=== PATIENT | male | born 1970 | race Caucasian/White ===

== ENCOUNTER 2017-10-07 17:57 | Emergency (ER) | payer OTHER ==
[2017-10-07 18:07] VITALS: RESP 18
[2017-10-07] MEDS ORDERED: PROPARACAINE 0.5% OPHTH DROPS 15 ML BTL BOTH EYES STA (18:16)
--- NOTE | 2017-10-07 18:20 | ED ---
Head Injury HPI - General Chief complaint: Head Injury Stated complaint: Eye Injury-[facility] Time Seen by Provider: 10/07/17 18:09 Source: patient, RN notes reviewed, old records reviewed Mode of arrival: ambulatory Limitations: no limitations - History of Present Illness Initial comments: This patient is a 47-year-old male presents for a steroid to the chief complaint of right eye pain. Patient reports he was working with a crowbar and the crowbar slipped and hit him in the right eye. He reports that he has pain with extraocular eye movements. The eyes swollen and painful with lights or movement of the eye. Patient states that he feels like his eyes burning and scratched. - Related Data Home Medications Medication Instructions Recorded Confirmed Dextroamphetamine/Amphetamine 15 mg PO QAM 10/07/17 10/07/17 [Adderall] Famotidine 40 mg PO BID 10/07/17 10/07/17 Previous Rx's Medication Instructions Recorded Ciprofloxacin Ophth Soln [Cipro 1 drops RIGHT EYE Q4HR #1 bottle 10/07/17 Ophth Soln] Allergies/Adverse reactions: Allergies Allergy/AdvReac Type Severity Reaction Status Date / Time No Known Allergies Allergy Verified 10/07/17 18:14 Review of Systems ROS Statement: Those systems with pertinent positive or pertinent negative responses have been documented in the HPI. ROS Other: All systems not noted in ROS Statement are negative. Past Medical History Past Medical History: No Reported History History of Any Multi-Drug Resistant Organisms: None Reported Past Surgical History: No Surgical Hx Reported Past Psychological History: No Psychological Hx Reported Smoking Status: Never smoker Past Alcohol Use History: None Reported Past Drug Use History: None Reported General Exam - General Exam Comments Initial Comments: 47-year-old male. Alert. Patient is in moderate discomfort. Limitations: no limitations General appearance: alert, in no apparent distress Head exam: Present: atraumatic, normocephalic, normal inspection Eye exam: Present: PERRL, EOMI, conjunctival injection (Right conjunctival injection.), periorbital swelling (Right-sided paravertebral tenderness and swelling.). Absent: normal appearance, scleral icterus Expanded Eyelids: Erythema: Right, Swelling: Right Pupils: Regular, Round: Bilateral Sclera/Conjunctival: Injection: Right (Patient is a large corneal abrasion from the 3 o'clock position to 7 o'clock position, second abrasion noted at the 9 o' clock position to 12 o'clock position of the eye respectively.) IOP (R) in mmH IOP (L) in mmH IOP measured with: [facility] ENT exam: Present: normal exam, mucous membranes moist Neck exam: Present: normal inspection. Absent: tenderness, meningismus, lymphadenopathy Respiratory exam: Present: normal lung sounds bilaterally. Absent: respiratory distress, wheezes, rales, rhonchi, stridor Cardiovascular Exam: Present: regular rate, normal rhythm, normal heart sounds. Absent: systolic murmur, diastolic murmur, rubs, gallop, clicks GI/Abdominal exam: Present: soft, normal bowel sounds. Absent: distended, tenderness, guarding, rebound, rigid Extremities exam: Present: normal inspection, full ROM, normal capillary refill. Absent: tenderness, pedal edema, joint swelling, calf tenderness Back exam: Present: normal inspection Neurological exam: Present: alert, oriented X3, CN II-XII intact Psychiatric exam: Present: normal affect, normal mood Skin exam: Present: warm, dry, intact, normal color. Absent: rash Course Vital Signs 10/07/17 10/07/17 18:03 19:07 Temperature 97.0 F L 97.6 F Pulse Rate 64 70 Respiratory 18 18 Rate Blood Pressure 136/86 130/86 O2 Sat by Pulse 99 97 Oximetry Medical Decision Making - Medical Decision Making 47-year-old male present of right eye irritation. Patient has a significant corneal abrasion on exam. Visual acuity is diminished due to the pain in the eye. Extraocular eye moves her tach. CT of brain and C-spine and face. Evidence of orbital fracture. CT brain was reviewed and normal. Patient started on Cipro drops. Will be given a referral for ophthalmology. We'll discharge him at this time with close follow-up with ophthalmology. All questions answered return parameters were discussed. - Radiology Data Radiology results: report reviewed There is minimal right-sided paravertebral soft tissue swelling. No fractures noted. Small mucous retention cyst in the right maxillary sinus. Negative computed tomography scan of the brain. Minimal right maxillary sinusitis or venous retention cyst. Arachnoid cyst noted in the posterior fossa. Disposition Clinical Impression: Corneal abrasion, Head injury, Contusion, eye Disposition: HOME SELF-CARE Condition: Good Instructions: Corneal Abrasion (ED) Additional Instructions: Patient is apply the antibiotic drops within the eye every 4 hours. Cool compresses over the eye. Return to the emergency department if any alarming signs or symptoms occur. Follow-up with ophthalmology tomorrow. Prescriptions: Ciprofloxacin Ophth Soln [Cipro Ophth Soln] 1 drops RIGHT EYE Q4HR #1 bottle Is patient prescribed a controlled substance at d/c from ED?: No If prescribed controlled substance>3 days was MAPS reviewed?: No When asked, does pt state using other controlled substances?: No Referrals: Johnny Coleman MD [Primary Care Provider] - 1-2 days Jluis Brown MD [STAFF PHYSICIAN] - 1-2 days Time of Disposition: 19:40
[2017-10-07] MEDS ORDERED: CIPROFLOXACIN 0.3% OPHTH SOLN 5 ML BTL RIGHT EYE STA (18:38)
[2017-10-07 19:08] VITALS: BP 130/86; PULSE 70; TEMP 97.6
--- NOTE | 2017-10-07 19:17 | CT ---
EXAMINATION TYPE: CT brain wo con DATE OF EXAM: 10/07/2017 COMPARISON: NONE HISTORY: Right orbital injury with swelling and pain. CT DLP: 1199 mGycm. Automated Exposure Control for Dose Reduction was Utilized. TECHNIQUE: CT scan of the head is performed without contrast. FINDINGS: Ventricles of normal size. There is no mass effect nor midline shift. There is no sign of intracranial hemorrhage. The calvarium is intact. There is minimal mucosal thickening at the floor t he right maxillary sinus. There is prominent subarachnoid space over the left cerebellar hemisphere a nd in particular at the anterior hemispheric fissure on the left side consistent with arachnoid cyst. This apparent cyst measures 1.7 cm. CONCLUSION: Negative CT scan of the brain. Minimal right maxillary sinusitis or mucous retention cyst. Arachnoid cyst noted in the posterior fossa.
--- NOTE | 2017-10-07 19:20 | CT ---
EXAMINATION TYPE: CT facial bones wo con DATE OF EXAM: 10/07/2017 COMPARISON: NONE HISTORY: Right orbital injury with swelling and pain. CT DLP: 679.3 mGycm Automated exposure control for dose reduction was used. TECHNIQUE: CT scan of the sinuses is performed without contrast, axial images are obtained, coronal r eformatted images are also reviewed. FINDINGS: The orbital margins appear intact. There is no evidence of retro-orbital mass. There is a s mall mucous retention 1 cm cyst at the floor the right maxillary sinus. There is fairly normal aerati on of the paranasal sinuses. There is bilateral patency of the ostiomeatal complex. The maxilla appea rs intact. The mandibular ring is intact. Zygomatic arches appear normal. Nasal bone appears intact. There is minimal soft tissue swelling anterior to the right orbit. The globes are symmetric. IMPRESSION: Minimal right-sided periorbital soft tissue swelling. No fracture seen. Small mucous rete ntion cyst in the right maxillary sinus.
== END 2017-10-07 19:56 | disposition home or self-care (01) ==
LOC: EC 17:57
DX: S05.01XA Injury of conjunctiva and corneal abrasion without foreign body, right eye, initial encounter (principal); S00.11XA Contusion of right eyelid and periocular area, initial encounter; S09.90XA Unspecified injury of head, initial encounter; Z79.899 Other long term (current) drug therapy; W22.8XXA Striking against or struck by other objects, initial encounter; Y92.69 Other specified industrial and construction area as the place of occurrence of the external cause; Y99.0 Civilian activity done for income or pay
CPT/HCPCS: 70450; 70486; 99284

== ENCOUNTER → 2020-05-23 | Outpatient (CLI) | payer BC ==
--- NOTE | 2020-05-23 10:56 | CT ---
EXAMINATION TYPE: CT abdomen pelvis w con DATE OF EXAM: 05/23/2020 COMPARISON: NONE HISTORY: 50-year-old male K57.92, acute diverticulitis, Left sided abdominal pain, history of stomach issues TECHNIQUE: Contiguous axial scanning of the abdomen and pelvis following administration of 100 ml Iso lauren 300 IV contrast. Delayed images through the kidneys and coronal/sagittal reconstructions perform ed. CT DLP: 1341 mGycm Automated exposure control for dose reduction was used. FINDINGS: Heart normal size without pericardial effusion. Small hiatal hernia. Lung bases clear without pleural effusion. Prominent lower paraesophageal lymph node measuring 9 mm probable reactive/post inflammato ry. Small amount of focal fat along the anterior falciform ligament. Portal venous system is patent. No b iliary ductal dilatation. Gallbladder, adrenal glands, spleen, and pancreas appear within normal limits. Bilateral extrarenal pelves. No nephrolithiasis or hydronephrosis. No dilated small bowel, free fluid, or free air. No mesenteric or retroperitoneal lymphadenopathy. Normal appendix. Oral contrast progressed to the upper ascending colon. Mild stool burden. Scattered mild diverticular change along the left side of the colon. No discrete acute inflammation is identifi ed at this time. Small fatty umbilical hernia measuring 2.0 cm wide. Moderate circumferential bladder wall thickening. Prostate gland prominent at 4.0 cm wide. Slight asy mmetric nodular enhancement within the right paramedian prostate gland, axial 5 and sagittal image 39 questionable clinical significance. Left-sided pelvic phleboliths. No abnormal fluid collection in t he pelvis or pelvic lymphadenopathy. Bones: Mild degenerative disc disease lower thoracic spine. Diffuse disc bulge L3-L4. Facet arthropat hy lower lumbar spine. IMPRESSION: 1. MILD SCATTERED LEFT-SIDED COLONIC DIVERTICULOSIS. NO EVIDENCE FOR ACUTE DIVERTICULITIS AT THIS ODALIS E. 2. MODERATE CIRCUMFERENTIAL BLADDER WALL THICKENING COULD REFLECT CHRONIC BLADDER HYPERTROPHY. CORREL ATE TO EXCLUDE CYSTITIS. 3. PROSTATE GLAND ONLY BORDERLINE ENLARGED AT 4.0 CM WIDE. THERE IS SLIGHT ASYMMETRIC NODULAR ENHANCE MENT IN THE RIGHT SIDE OF THE PROSTATE GLAND OF QUESTIONABLE CLINICAL SIGNIFICANCE. CORRELATE WITH PS A VALUES AND POSSIBLE PROSTATE ULTRASOUND CLINICALLY INDICATED. 4. SMALL HIATAL HERNIA. AN ADJACENT BORDERLINE SIZED 9 MM LYMPH NODE IS PROBABLY REACTIVE/POST INFLAM MATORY. ADDITIONAL SMALL FATTY UMBILICAL HERNIA.
== END | disposition home or self-care (01) ==
LOC: RADCTMAIN 08:30
PROVIDERS: ATTEND Family Medicine
DX: K57.30 Diverticulosis of large intestine without perforation or abscess without bleeding (principal); N40.0 Benign prostatic hyperplasia without lower urinary tract symptoms; K42.9 Umbilical hernia without obstruction or gangrene; N32.89 Other specified disorders of bladder; R93.89 Abnormal findings on diagnostic imaging of other specified body structures
CPT/HCPCS: 74177; Q9967

== ENCOUNTER 2020-08-19 12:16 | Emergency (ER) | payer BC ==
[2020-08-19 12:23] VITALS: TEMP 97.5
[2020-08-19] MEDS ORDERED: ONDANSETRON 4 MG/2 ML VIAL IVP STA (12:34)
[2020-08-19] MEDS ORDERED: HYDROmorphone 1 MG/ML 1 ML SYRINGE IVP STA ×2 (12:34→14:22)
[2020-08-19] MEDS ORDERED: SODIUM CHLORIDE 0.9% 1,000 ML IV STA ×2 (12:34→14:22)
--- NOTE | 2020-08-19 12:39 | ED ---
Nausea/Vomiting/Diarrhea HPI - General Chief complaint: Nausea/Vomiting/Diarrhea Stated complaint: abd pain Time Seen by Provider: 08/19/20 12:24 Source: patient, family, RN notes reviewed Mode of arrival: wheelchair Limitations: no limitations - History of Present Illness Initial comments: Patient is a 50-year-old male that presents to emergency department complaining of abdominal pain, nausea vomiting, hematochezia and bright red per rectum over the last several days. He noted that he has not able to eat or drink really over the last couple days. Said the pains a 10 out of 10 that is constant sharp with no relief. He did note that since last January he's had mysterious abdominal pain. Most recent CT was May 2020 which didn't show any i nfection or inflammation. Patient was in moderate distress and discomfort while laying in bed during exam and interview. He noted that yesterday he had a loose stool with some bright red blood in it and vomited with bright red blood in it. He denied any chest pain shortness of breath headache constipation fever fatigue chills history of bleeding issues. - Related Data Home Medications Medication Instructions Recorded Confirmed Dextroamphetamine/Amphetamine 15 mg PO BID@0600,1300 10/07/17 08/19/20 [Adderall] Famotidine 40 mg PO BID PRN 10/07/17 08/19/20 Citalopram Hydrobromide [CeleXA] 20 mg PO DAILY 08/19/20 08/19/20 Previous Rx's Medication Instructions Recorded Ciprofloxacin HCl [Cipro] 500 mg PO Q12HR 5 Days #10 tablet 08/19/20 Ondansetron HCl [Zofran] 4 mg PO Q8H PRN 7 Days #21 tab 08/19/20 predniSONE 50 mg PO DAILY 5 Days #5 tablet 08/19/20 Allergies Allergy/AdvReac Type Severity Reaction Status Date / Time No Known Allergies Allergy Verified 08/19/20 13:59 Review of Systems ROS Statement: Those systems with pertinent positive or pertinent negative responses have been documented in the HPI. ROS Other: All systems not noted in ROS Statement are negative. Past Medical History Past Medical History: No Reported History History of Any Multi-Drug Resistant Organisms: None Reported Past Surgical History: No Surgical Hx Reported Past Psychological History: No Psychological Hx Reported Smoking Status: Never smoker Past Alcohol Use History: None Reported Past Drug Use History: None Reported General Exam Limitations: no limitations General appearance: alert, in distress Head exam: Present: atraumatic, normocephalic, normal inspection Eye exam: Present: normal appearance, PERRL, EOMI. Absent: scleral icterus, conjunctival injection, periorbital swelling Neck exam: Present: normal inspection. Absent: tenderness, meningismus, lymphadenopathy Respiratory exam: Present: normal lung sounds bilaterally. Absent: respiratory distress, wheezes, rales, rhonchi, stridor Cardiovascular Exam: Present: regular rate, normal rhythm, normal heart sounds. Absent: systolic murmur, diastolic murmur, rubs, gallop, clicks GI/Abdominal exam: Present: soft, tenderness (Left upper quadrant, nonradiating), normal bowel sounds. Absent: distended, guarding, rebound, rigid Extremities exam: Present: normal inspection, full ROM, normal capillary refill. Absent: tenderness, pedal edema, joint swelling, calf tenderness Neurological exam: Present: alert, oriented X3, CN II-XII intact Psychiatric exam: Present: normal affect, normal mood Skin exam: Present: warm, dry, intact, normal color. Absent: rash Course Vital Signs 08/19/20 12:20 Temperature 97.5 F L Pulse Rate 60 Respiratory 16 Rate Blood Pressure 157/96 O2 Sat by Pulse 100 Oximetry Medical Decision Making - Medical Decision Making 42-year-old male complaining of abdominal pain with nausea vomiting bright red blood per rectum and emesis with bright red blood. Labs, 1 L normal saline, 1 mg of Dilaudid, 4 mg of Zofran ordered. Labs unremarkable, most likely viral gastroenteritis, colitis. Patient appears to be feeling better after second dose of pain medication, he states that he will follow-up with GI and primary care. Case discussed with Dr. Dominique, decided to discharge patient home, with follow-up to GI. - Lab Data Result diagrams: 08/19/20 12:47 08/19/20 12:47 Lab Results 08/19/20 08/19/20 08/19/20 Range/Units 12:40 12:45 12:47 WBC 11.6 H (3.8-10.6) k/uL RBC 5.80 (4.30-5.90) m/uL Hgb 16.1 (13.0-17.5) gm/dL Hct 47.3 (39.0-53.0) % MCV 81.5 (80.0-100.0) fL MCH 27.8 (25.0-35.0) pg MCHC 34.1 (31.0-37.0) g/dL RDW 12.9 (11.5-15.5) % Plt Count 298 (150-450) k/uL MPV 7.5 Neutrophils % 84 % Lymphocytes % 12 % Monocytes % 2 % Eosinophils % 2 % Basophils % 0 % Neutrophils # 9.7 H (1.3-7.7) k/uL Lymphocytes # 1.4 (1.0-4.8) k/uL Monocytes # 0.2 (0-1.0) k/uL Eosinophils # 0.2 (0-0.7) k/uL Basophils # 0.0 (0-0.2) k/uL PT (9.0-12.0) sec INR (<1.2) APTT (22.0-30.0) sec Sodium (137-145) mmol/L Potassium (3.5-5.1) mmol/L Chloride (98-107) mmol/L Carbon Dioxide (22-30) mmol/L Anion Gap mmol/L BUN (9-20) mg/dL Creatinine (0.66-1.25) mg/dL Est GFR (CKD-EPI)AfAm (>60 ml/min/1.73 sqM) Est GFR (CKD-EPI)NonAf (>60 ml/min/1.73 sqM) Glucose (74-99) mg/dL Plasma Lactic Acid Benjy (0.7-2.0) mmol/L Calcium (8.4-10.2) mg/dL Magnesium (1.6-2.3) mg/dL Total Bilirubin (0.2-1.3) mg/dL AST (17-59) U/L ALT (4-49) U/L Alkaline Phosphatase (38-126) U/L Troponin I (0.000-0.034) ng/mL Total Protein (6.3-8.2) g/dL Albumin (3.5-5.0) g/dL Lipase (23-300) U/L Blood Type O Positive Blood Type Confirm O Positive Blood Type Recheck No Previous Record Bld Type Recheck Status CABO Indicated Antibody Screen NEGATIVE Spec Expiration Date 08/22/2020234608/19/20 08/19/20 08/19/20 Range/Units 12:47 12:47 12:47 WBC (3.8-10.6) k/uL RBC (4.30-5.90) m/uL Hgb (13.0-17.5) gm/dL Hct (39.0-53.0) % MCV (80.0-100.0) fL MCH (25.0-35.0) pg MCHC (31.0-37.0) g/dL RDW (11.5-15.5) % Plt Count (150-450) k/uL MPV Neutrophils % % Lymphocytes % % Monocytes % % Eosinophils % % Basophils % % Neutrophils # (1.3-7.7) k/uL Lymphocytes # (1.0-4.8) k/uL Monocytes # (0-1.0) k/uL Eosinophils # (0-0.7) k/uL Basophils # (0-0.2) k/uL PT 10.0 (9.0-12.0) sec INR 0.9 (<1.2) APTT 21.1 L (22.0-30.0) sec Sodium 137 (137-145) mmol/L Potassium 4.2 (3.5-5.1) mmol/L Chloride 104 (98-107) mmol/L Carbon Dioxide 23 (22-30) mmol/L Anion Gap 10 mmol/L BUN 12 (9-20) mg/dL Creatinine 0.79 (0.66-1.25) mg/dL Est GFR (CKD-EPI)AfAm >90 (>60 ml/min/1.73 sqM) Est GFR (CKD-EPI)NonAf >90 (>60 ml/min/1.73 sqM) Glucose 145 H (74-99) mg/dL Plasma Lactic Acid Benjy 2.3 H* (0.7-2.0) mmol/L Calcium 10.0 (8.4-10.2) mg/dL Magnesium 1.7 (1.6-2.3) mg/dL Total Bilirubin 1.0 (0.2-1.3) mg/dL AST 30 (17-59) U/L ALT 30 (4-49) U/L Alkaline Phosphatase 74 (38-126) U/L Troponin I (0.000-0.034) ng/mL Total Protein 8.1 (6.3-8.2) g/dL Albumin 4.9 (3.5-5.0) g/dL Lipase 146 (23-300) U/L Blood Type Blood Type Confirm Blood Type Recheck Bld Type Recheck Status Antibody Screen Spec Expiration Date 08/19/20 Range/Units 12:47 WBC (3.8-10.6) k/uL RBC (4.30-5.90) m/uL Hgb (13.0-17.5) gm/dL Hct (39.0-53.0) % MCV (80.0-100.0) fL MCH (25.0-35.0) pg MCHC (31.0-37.0) g/dL RDW (11.5-15.5) % Plt Count (150-450) k/uL MPV Neutrophils % % Lymphocytes % % Monocytes % % Eosinophils % % Basophils % % Neutrophils # (1.3-7.7) k/uL Lymphocytes # (1.0-4.8) k/uL Monocytes # (0-1.0) k/uL Eosinophils # (0-0.7) k/uL Basophils # (0-0.2) k/uL PT (9.0-12.0) sec INR (<1.2) APTT (22.0-30.0) sec Sodium (137-145) mmol/L Potassium (3.5-5.1) mmol/L Chloride (98-107) mmol/L Carbon Dioxide (22-30) mmol/L Anion Gap mmol/L BUN (9-20) mg/dL Creatinine (0.66-1.25) mg/dL Est GFR (CKD-EPI)AfAm (>60 ml/min/1.73 sqM) Est GFR (CKD-EPI)NonAf (>60 ml/min/1.73 sqM) Glucose (74-99) mg/dL Plasma Lactic Acid Benjy (0.7-2.0) mmol/L Calcium (8.4-10.2) mg/dL Magnesium (1.6-2.3) mg/dL Total Bilirubin (0.2-1.3) mg/dL AST (17-59) U/L ALT (4-49) U/L Alkaline Phosphatase (38-126) U/L Troponin I <0.012 (0.000-0.034) ng/mL Total Protein (6.3-8.2) g/dL Albumin (3.5-5.0) g/dL Lipase (23-300) U/L Blood Type Blood Type Confirm Blood Type Recheck Bld Type Recheck Status Antibody Screen Spec Expiration Date - Radiology Data Radiology results: report reviewed, image reviewed CT abdomen and pelvis: No bowel obstruction. Scattered colonic diverticula greatest at sigmoid colon redemonstrated without convincing CT evidence for acute diverticulitis. Perhaps mild mid to distal uncomplicated acute colitis versus products of port distention, correlate clinically differential includes infectious and/or inflammatory etiologies. Disposition Clinical Impression: Dehydration, Gastroenteritis, Colitis Disposition: HOME SELF-CARE Condition: Stable Instructions (If sedation given, give patient instructions): Acute Nausea and Vomiting (ED), Acute Diarrhea (ED) Additional Instructions: Please return to the Emergency Department if symptoms worsen or any other concerns. Follow-up primary care 1-2 days. Follow-up with GI. Take antibiotics as prescribed until complete. Take steroids as prescribed. Prescriptions: Ciprofloxacin HCl [Cipro] 500 mg PO Q12HR 5 Days #10 tablet predniSONE 50 mg PO DAILY 5 Days #5 tablet Ondansetron HCl [Zofran] 4 mg PO Q8H PRN 7 Days #21 tab PRN Reason: Nausea And Vomiting Is patient prescribed a controlled substance at d/c from ED?: Yes When asked, does pt state using other controlled substances?: No If prescribed controlled substance>3 days was MAPS reviewed?: Prescribed <3 Days If opioid is for acute pain is fill amount 7 days or less?: Yes Referrals: Johnny Coleman MD [Primary Care Provider] - 1-2 days Rei Fraire MD [STAFF PHYSICIAN] - 1-2 days Time of Disposition: 15:05
[2020-08-19 13:02] LABS: Basophils % (A) 0 %; Eosinophils # (A) 0.2 k/uL (0-0.7); Eosinophils % (A) 2 %; HCT 47.3 % (39.0-53.0); HGB 16.1 gm/dL (13.0-17.5); Lymphocytes # (A) 1.4 k/uL (1.0-4.8); Lymphocytes % (A) 12 %; MCH 27.8 pg (25.0-35.0); MCHC 34.1 g/dL (31.0-37.0); MCV 81.5 fL (80.0-100.0); Mean Platelet Volume 7.5; Monocytes # (A) 0.2 k/uL (0-1.0); Monocytes % (A) 2 %; Neutrophils # (A) 9.7 k/uL (1.3-7.7); Neutrophils % (A) 84 %; Platelet Count 298 k/uL (150-450); RDW 12.9 % (11.5-15.5); WBC 11.6 k/uL (3.8-10.6)
[2020-08-19 13:21] LABS: INR 0.9 (<1.2)
[2020-08-19 13:29] LABS: ALT 30 U/L (4-49); AST 30 U/L (17-59); African American GFR (CKD) >90 (>60 ml/min/1.73 sqM); Albumin 4.9 g/dL (3.5-5.0); Alkaline Phosphatase 74 U/L (38-126); Anion Gap 10 mmol/L; Blood Urea Nitrogen 12 mg/dL (9-20); Carbon Dioxide 23 mmol/L (22-30); Chloride 104 mmol/L (98-107); Glucose 145 mg/dL (74-99); Lipase 146 U/L (23-300); Magnesium 1.7 mg/dL (1.6-2.3); Non-African American GFR(CKD) >90 (>60 ml/min/1.73 sqM); Potassium 4.2 mmol/L (3.5-5.1); Sodium 137 mmol/L (137-145); Total Protein 8.1 g/dL (6.3-8.2)
[2020-08-19 13:40] LABS: Partial Thromboplastin Time 21.1 sec (22.0-30.0)
--- NOTE | 2020-08-19 13:43 | CT ---
EXAMINATION TYPE: CT abdomen pelvis w con DATE OF EXAM: 08/19/2020 COMPARISON: CT abdomen and pelvis May 23, 2020 HISTORY: Left sided pain with vomiting. CT DLP: 1114.8 mGycm, Automated Exposure Control for Dose Reduction was Utilized. CONTRAST: CT scan of the abdomen and pelvis is performed without oral but with IV Contrast, patient injected wi th 100 mL of Isovue 300. FINDINGS: LUNG BASES: No significant abnormality is appreciated. LIVER/GB: Heterogeneous enhancement of the liver without new focal mass. PANCREAS: No significant abnormality is seen. SPLEEN: No significant abnormality is seen. ADRENALS: No significant abnormality is seen. KIDNEYS: Symmetric cortical medullary uptake and excretion without hydronephrosis seen bilaterally. BOWEL: Small to moderate-sized hiatal hernia more prominent from prior. Adjacent prominent paraesopha geal lymph nodes redemonstrated. For reference 8 mm lymph node axial image 15 stable from prior. Some scattered diverticula most numerous diverticula in the sigmoid colon. No CT evidence for acute diver ticulitis. Suboptimal evaluation without enteric contrast. No suspicious small or large bowel dilatat ion. Normal-appearing appendix ascending from cecum. Mild wall thickening in the transverse colon jose ng with the left colon and portions of sigmoid colon. No significant surrounding fluid or fat strandi ng. PROSTATE/SEMINAL VESICLES: Prostate gland upper limits of normal in size bulging of bladder base, adj acent left-sided pelvic phleboliths. LYMPH NODES: No greater than 1cm abdominal or pelvic lymph nodes are appreciated. OSSEOUS STRUCTURES: No significant abnormality is seen. OTHER: Moderate-sized fat-containing umbilical hernia redemonstrated and stable. IMPRESSION: No bowel obstruction. Scattered colonic diverticula greatest the sigmoid colon redemonst rated without convincing CT evidence for acute diverticulitis. Perhaps mild mid to distal uncomplicat ed acute colitis versus product of poor distention, correlate clinically, differential includes infec tious and/or inflammatory etiologies.
[2020-08-19] MEDS ORDERED: ACET/COD 300 MG/30 MG STARTER PACK 6 TAB BTL PO STA (15:10)
[2020-08-19 15:47] VITALS: BP 117/78; PULSE 68; RESP 18
== END 2020-08-19 15:47 | disposition home or self-care (01) ==
LOC: EC 12:16
DX: K52.9 Noninfective gastroenteritis and colitis, unspecified (principal)
CPT/HCPCS: 36415; 86900; 86901; 80053; 83605; 83690; 83735; 84484; 85025; 85610; 85730; 86850; 74177; 99284; 96374; 96375 ×2; 96361; J2405; J1170; Q9967; 96376

== ENCOUNTER → 2021-04-11 | Outpatient (CLI) | payer BC ==
--- NOTE | 2021-04-11 11:49 | XR ---
Left foot HISTORY: Pain, trauma several weeks prior 3 views of the left foot no comparisons Degenerative changes present at the first metatarsophalangeal joint, there is associated soft tissue swelling. Some mild flattening present at the distal second metatarsal. There is some associated scle rosis, underlying osteonecrosis not excluded. There is degenerative change, spurring and joint space loss of the tibiotalar joint. Bone mineralization otherwise maintained. IMPRESSION: No fracture or dislocation is evident. Findings at the second metatarsal could represent normal variant rather than Freiberg's infraction. Osteoarthritic changes are noted as described. Foot MRI may be of benefit.
== END | disposition home or self-care (01) ==
LOC: RADXRMAIN 08:34
PROVIDERS: ATTEND Family Medicine
DX: M19.072 Primary osteoarthritis, left ankle and foot (principal)